=== PATIENT | male | born 1990 | race Caucasian/White ===

== ENCOUNTER 2020-07-04 01:38 | Emergency (ER) | payer BC ==
[~2020-07-04] VITALS: Ht 188 cm; Wt 126.1 kg
[~2020-07-04 01:38] MED LIST: ALBU90OI INH; AMOX500 PO; CRUTCH3 USE; Cortisporin Ear10 ML LEFTEAR; HYDACE5 PO; IBUP800 PO; OMEP10ER PO; Omeprazole20 M1 PO; PENVK500 PO; PROCODE120 PO; SPACE CHAMBER1 EACH MC
[2020-07-04] MEDS ORDERED: IBU600 MG PO (01:52)
[2020-07-04] MEDS ORDERED: AMOCLA875 PO (01:52)
== END 2020-07-04 02:11 | disposition home or self-care (01) ==
LOC: ER 01:38
DX: S01.451A Open bite of right cheek and temporomandibular area, initial encounter (principal); S51.851A Open bite of right forearm, initial encounter; F17.210 Nicotine dependence, cigarettes, uncomplicated; Z23 Encounter for immunization; Z79.899 Other long term (current) drug therapy; W54.0XXA Bitten by dog, initial encounter; Y93.89 Activity, other specified
CPT/HCPCS: 90471; 90714; 99283